=== PATIENT | female | born 1930 | race Caucasian/White ===

== ENCOUNTER → 2021-08-24 | Outpatient (RCR) | payer MEDICARE | LOC: PT 08-14 13:54 | PROVIDERS: ATTEND Physician Assistant | DX: S32.040A Wedge compression fracture of fourth lumbar vertebra, initial encounter for closed fracture (principal) ==

== ENCOUNTER 2021-09-14 16:00 | Outpatient (RCR) | payer MEDICARE | END 2021-09-24 | LOC: PT 16:00 | PROVIDERS: ATTEND Physician Assistant | DX: S32.040A Wedge compression fracture of fourth lumbar vertebra, initial encounter for closed fracture (principal) ==